=== PATIENT | male | born 1945 | race American Indian/Alaskan Native ===

== ENCOUNTER 2020-10-05 18:20 | Emergency (ER) | payer MEDICARE ==
[2020-10-05] MEDS ORDERED: ASPIRIN 325 MG TAB PO ONE (18:27)
--- NOTE | 2020-10-05 18:34 | Event Note ---
ED Screening Note Date of service: 10/05/20 Time: 18:30 ED Screening Note: Patient is a 75 yo AA male with a h/o CAD, CHF, HTN and CKD and who is s/p pacemaker placement presents to the ED with c/o acute onset persistent intermittent chest tightness with tingling sensation around his pacemaker site for the last 2 days. Patient also c/o dizziness, dyspnea, diaphoresis and generalized weakness. Patient denies chest pain, cough, nausea, vomiting, neck pain or arm pain, abdominal pain, fever, chills or headache and syncope or dizziness. This initial assessment/diagnostic orders/clinical plan/treatment(s) is/are subject to change based on patients health status, clinical progression and re- assessment by fellow clinical providers in the ED. Further treatment and workup at subsequent clinical providers discretion. Patient/guardian urged not to elope from the ED as their condition may be serious if not clinically assessed and managed. Initial orders include: EKG, CBC, CMP, Troponin, Chest x-ray, BNP and Aspirin
--- NOTE | 2020-10-05 19:06 | XRay Report ---
CHEST 2 VIEWS INDICATION / CLINICAL INFORMATION: dizziness. COMPARISON: None available. FINDINGS: SUPPORT DEVICES: AICD is noted HEART / MEDIASTINUM: No significant abnormality. LUNGS / PLEURA: No significant pulmonary or pleural abnormality. No pneumothorax. ADDITIONAL FINDINGS: No significant additional findings. IMPRESSION: 1. No acute findings. Signer Name: Pramod Burks MD Signed: 10/05/2020 7:02 PM Workstation Name: [id number]
[2020-10-05 19:11] LABS: Basophils % (Auto) 0.4 % (0.0-1.8); Eosinophils % (Auto) 0.4 % (0.0-4.3); Hematocrit 45.5 % (35.5-45.6); Hemoglobin 14.9 gm/dl (11.8-15.2); Lymphocytes # (Auto) 1.3 K/mm3 (1.2-5.4); Lymphocytes % (Auto) 23.6 % (13.4-35.0); Mean Corpuscular HGB Conc 33 % (32-34); Mean Corpuscular Volume 95 fl (84-94); Monocytes # (Auto) 0.5 K/mm3 (0.0-0.8); Platelet Count 149 K/mm3 (140-440); Red Blood Count 4.81 M/mm3 (3.65-5.03); Red Cell Distribution Width 15.9 % (13.2-15.2)
[2020-10-05 19:34] LABS: Alanine Aminotransferase 28 units/L (7-56); Albumin 3.9 g/dL (3.9-5); BUN/Creatinine Ratio 13; Blood Urea Nitrogen 14 mg/dL (9-20); Calcium 8.7 mg/dL (8.4-10.2); Hemolysis Index 16
--- NOTE | 2020-10-05 19:56 | Emergency Department Report ---
ED Chest Pain HPI - General Chief Complaint: Dizziness Stated Complaint: CHEST PAIN Time Seen by Provider: 10/05/20 19:41 Source: patient Mode of arrival: Wheelchair Limitations: Physical Limitation - History of Present Illness Initial Comments: Patient is 75 years old male with history of hypertension, CVA, congestive heart failure and defibrillator. Patient presented to the ER complaining of left- sided chest pain around his defibrillator with no radiation. Patient also stated that he has been having some dizziness. Patient is visiting his daughter but he usually lives in [place]. Patient denied any fever or chills. No nausea or vomiting. MD Complaint: chest pain -: days(s) Onset: during rest Pain Location: left chest Quality: tightness - Related Data Allergies Allergy/AdvReac Type Severity Reaction Status Date / Time No Known Allergies Allergy Verified 10/05/20 20:13 Heart Score - HEART Score History: Moderately suspicious EKG: Non-specific Age: > 65 Risk factors: > 3 risk factors or hx of atherosclerotic disease Troponin: < normal limit HEART Score: 6 - EKG Read Time Time EKG Completed: 18:32 EKG Read Time: 18:45 - Critical Actions Critical Actions: 4-6 pts:12-16.6% risk of adverse cardiac event. Should be admitted ED Review of Systems ROS: Stated complaint: CHEST PAIN Other details as noted in HPI Comment: All other systems reviewed and negative Respiratory: denies: cough, shortness of breath Gastrointestinal: denies: abdominal pain, nausea, vomiting Musculoskeletal: denies: back pain Neurological: denies: headache, weakness, numbness, paresthesias, confusion ED Past Medical Hx - Past Medical History Previous Medical History?: Yes Hx Hypertension: Yes Hx CVA: Yes Hx Heart Attack/AMI: (has a defibrillator) Hx Diabetes: No - Surgical History Additional Surgical History: appy, gastric bypass ED Physical Exam - General Limitations: Physical Limitation General appearance: alert, in no apparent distress - Head Head exam: Present: atraumatic, normocephalic, normal inspection - Eye Eye exam: Present: normal appearance - ENT ENT exam: Present: normal orophraynx - Neck Neck exam: Present: normal inspection, full ROM. Absent: tenderness, meningismus - Respiratory Respiratory exam: Present: normal lung sounds bilaterally - Cardiovascular Cardiovascular Exam: Present: regular rate, bradycardia, normal heart sounds - GI/Abdominal GI/Abdominal exam: Present: soft, normal bowel sounds. Absent: distended, tenderness, guarding, rebound, rigid, organomegaly, mass, bruit, pulsatile mass, hernia - Extremities Exam Extremities exam: Present: normal inspection, full ROM, normal capillary refill - Back Exam Back exam: Absent: CVA tenderness (R), CVA tenderness (L) - Neurological Exam Neurological exam: Present: alert, oriented X3 - Skin Skin exam: Present: warm, intact, normal color ED Course Vital Signs 10/05/20 10/05/20 10/05/20 18:25 20:05 20:16 Temperature 97.7 F 97.8 F Pulse Rate 59 L 69 60 Respiratory 20 15 12 Rate Blood Pressure 118/69 139/91 Blood Pressure 141/81 [Left] O2 Sat by Pulse 99 97 100 Oximetry - Reevaluation(s) Reevaluation #1: 10/05/20 21:47 Patient stated that he does not want to be admitted to the hospital and he wanted to go home. Patient is alert, oriented x3 in no acute distress and can make a sound decision. I I discussed with his daughter Yumiko and he agreed that he can sign AGAINST MEDICAL ADVICE. Patient advised to return to the ER or go to another ER if his symptoms get worse. Patient also advised to follow-up with his primary care physician as soon as possible. ED Medical Decision Making - Lab Data Result diagrams: 10/05/20 18:57 10/05/20 18:57 - EKG Data -: EKG Interpreted by Me - EKG Data 10/05/20 19:57 Atrial flutter with a heart rate of 56. - Radiology Data Radiology results: report reviewed - Medical Decision Making Patient is 75 years old male with history of hypertension, CVA, congestive heart failure and defibrillator. Patient presented to the ER complaining of left- sided chest pain around his defibrillator with no radiation. Patient also stated that he has been having some dizziness. Patient is visiting his daughter but he usually lives in [place]. Patient denied any fever or chills. No nausea or vomiting. EKG showed atrial flutter with a rate of 56. Chest x-ray is unremarkable. Labs reviewed and is unremarkable including negative troponin. I discussed the patient with Dr. Crawford, he agreed to admit the patient to medical service for further management. Critical care attestation.: If time is entered above; I have spent that time in minutes in the direct care of this critically ill patient, excluding procedure time. ED Disposition Clinical Impression: Acute chest pain Disposition: DC-09 OP ADMIT IP TO THIS HOSP Is pt being admited?: Yes Condition: Stable Instructions: Chest Pain (ED) Forms: AMA Form
[2020-10-05 22:31] VITALS: BP 127/83
--- NOTE | 2020-10-06 10:30 | Electrocardiograph Report ---
[facility] Test Date: 2020-10-05 Test Time: 18:32:31 Pat Name: VANESSA CHANEL Department: Room: Gender: M Extract Operator: WILMER COSBYB: 1945 Requested By: NEVAEH EMANUEL Order Number: [id number] Reading MD: Sarwat Kennedy Measurements Intervals [place] Rate: 56 P: FL: QRS: -3 QRSD: 111 T: -4 QT: 480 QTc: 463 Interpretive Statements JUNCTIONAL ESCAPE RHYTHM vs afib Inferior infarct, old Consider anterior infarct No previous ECG available for comparison Electronically Signed On 10-06-2020 10:29:56 EDT by Sarwat Kennedy
== END 2020-10-05 21:50 | disposition admitted as inpatient to this hospital (09) ==
LOC: ED 18:20
DX: R07.89 Other chest pain (principal); I11.0 Hypertensive heart disease with heart failure; I50.9 Heart failure, unspecified; Z86.73 Personal history of transient ischemic attack (TIA), and cerebral infarction without residual deficits
CPT/HCPCS: 36415; 71046; 80053; 84484; 85025; 93005